=== PATIENT | male | born 2000 | race Hispanic/Latino ===

== ENCOUNTER 2018-06-19 20:55 | Emergency (ER) | payer OTHER ==
[~2018-06-19] VITALS: Ht 175.3 cm; Wt 86.4 kg
[2018-06-19 22:12] LABS: BASO # 0.1 10^3/uL (0.0-0.2); BASO % 0.7 % (0.0-1.0); EOS # 0.3 10^3/uL (0.0-0.50); EOS % 4.6 % (0.0-3.0); HEMATOCRIT 50.2 % (42.0-52.0); HEMOGLOBIN 17.5 g/dl (13.5-17.5); LYMPH % 44.4 % (24.0-44.0); MEAN CORPUSCULAR HEMOGLOBIN 30.9 pg (27.0-33.0); MEAN CORPUSCULAR HGB CONC 34.9 g/dl (32.0-36.5); MEAN CORPUSCULAR VOLUME 88.5 fl (80.0-96.0); MONO # 0.4 10^3/uL (0.0-0.8); MONO % 5.8 % (0.0-5.0); NEUTROPHILS % 44.2 % (36.0-66.0); PLATELET COUNT, AUTOMATED 245 10^3/uL (150-450); RED BLOOD COUNT 5.67 10^6/uL (4.30-6.10); WHITE BLOOD COUNT 6.7 10^3/uL (4.0-10.0)
[2018-06-19] MEDS ORDERED: ONDANSETRON 4MG/2ML VIAL (J2405) IV ONE (22:15)
[2018-06-19] MEDS ORDERED: NS 1,000 ML IV ONE (22:15)
[2018-06-19] MEDS ORDERED: KETOROLAC 30 MG/ML VIAL (J1885) IV ONE (22:15)
[2018-06-19 22:22] LABS: ALBUMIN 3.9 GM/DL (3.2-5.2); ALT/SGPT 21 U/L (12-78); BILIRUBIN,DIRECT < 0.1 MG/DL (0.0-0.2); BILIRUBIN,TOTAL 0.3 MG/DL (0.2-1.0); BLOOD UREA NITROGEN 12 MG/DL (7-18); CALCIUM LEVEL 8.6 MG/DL (8.5-10.1); CARBON DIOXIDE LEVEL 28 MEQ/L (21-32); CHLORIDE LEVEL 107 MEQ/L (98-107); CREATININE FOR GFR 0.88 MG/DL (0.70-1.30); GLUCOSE, FASTING 113 MG/DL (70-100); LIPASE 133 U/L (73-393); POTASSIUM SERUM 4.1 MEQ/L (3.5-5.1); SODIUM LEVEL 141 MEQ/L (136-145); TOTAL PROTEIN 7.1 GM/DL (6.4-8.2)
--- NOTE | 2018-06-19 23:21 | REPVR ---
EXAM: CT Abdomen and Pelvis Without Contrast EXAM DATE/TIME: 06/19/2018 10:42 PM CLINICAL HISTORY: 17 years old, male; Pain; Abdominal pain; Flank; Left; Additional info: Left flank/abd pain TECHNIQUE: Axial computed tomography images of the abdomen and pelvis without contrast. All CT scans at this facility use at least one of these dose optimization techniques: automated exposure control; mA and/or kV adjustment per patient size (includes targeted exams where dose is matched to clinical indication); or iterative reconstruction. Coronal and sagittal reformatted images were created and reviewed. COMPARISON: No relevant prior studies available. Study limitations: Evaluation for mass, inflammatory change, including bowel wall/fold thickening, viscera, and vasculature, is suboptimal without contrast. FINDINGS: LUNG BASES: No infiltrate or effusion. VASCULAR: Major vasculature is within normal limits for noncontrast evaluation. PERITONEAL : No free air. Trace amount of simple appearing free fluid within the pelvis (image 116, series 201) is of uncertain significance but abnormal in a male patient. GI: No hiatal hernia. The stomach is mildly distended with ingested material, fluid and gas. Evaluation of the stomach is limited without complete distention and contrast. No perigastric inflammatory stranding seen. Nonspecific fluid-filled loops of small bowel. No appearance of bowel obstruction. Mild gastroenteritis would be difficult to exclude by imaging but could be correlated clinically with any symptoms. Scattered fecal material and gas within portions of the colon and rectum. No pericolonic inflammatory stranding. No evidence of acute diverticulitis. The appendix does not appear inflamed. HEPATOBILIARY, PANCREAS, SPLEEN: Sagittal hepatic length is 18.8 cm. Hepatic attenuation is consistent with fatty infiltration. No calcified gallstones. Evaluation of pancreatic parenchyma is limited without contrast. No obvious peripancreatic inflammatory stranding. Spleen not enlarged. ADRENALS, KIDNEYS, BLADDER, RETROPERITONEAL: Adrenals within normal limits. No hydronephrosis. No perinephric stranding or fluid. There may be a punctate nonobstructing left lower pole renal calculus. Course of the distal ureters is not clearly identified but no suspicious calcifications are seen. There is a calcification within the left pelvis and felt likely to represent a phlebolith. Mild prominence of the prostate. Prostate calcification noted. No bladder wall thickening. No perivesical stranding. No calculi within the urinary bladder. MUSCULOSKELETAL: No acute findings. IMPRESSION: No hydronephrosis. There may be a punctate nonobstructive left lower pole renal calculus. Genitourinary findings as discussed above. Trace amount of free fluid within the pelvis. This is of uncertain cause but is abnormal in a male patient. Nonspecific gastrointestinal findings as discussed above. Other findings and study limitations discussed above. Electronically signed by: Abdi Hicks On 06/19/2018 23:20:43 PM
[2018-06-20 01:26] VITALS: BP 138/66
[2018-06-20 01:32] LABS: CHLAMYDIA DNA AMPLIFICATION NEGATIVE (NEGATIVE); GC DNA AMPLIFICATION NEGATIVE (NEGATIVE)
== END 2018-06-20 01:36 | disposition home or self-care (01) ==
LOC: M ED 20:55
DX: A08.4 Viral intestinal infection, unspecified (principal); R93.5 Abnormal findings on diagnostic imaging of other abdominal regions, including retroperitoneum; N40.0 Benign prostatic hyperplasia without lower urinary tract symptoms; F17.210 Nicotine dependence, cigarettes, uncomplicated
CPT/HCPCS: 36415; 74176; 80048; 80076; 81001; 83690; 85025; 87491; 87591; 96361; 96374; 96375; 99284; J1885; J2405

== ENCOUNTER 2019-02-06 18:26 | Emergency (ER) | payer OTHER ==
[~2019-02-06] VITALS: Ht 175.3 cm; Wt 92.5 kg
[2019-02-06 21:19] VITALS: BP 150/88
--- NOTE | 2019-02-07 07:41 | REP ---
REASON: Trauma. COMPARISON: No priors. FINDINGS: No acute fracture or destructive osseous lesion. The mortise is intact. Electronically Signed by Jose Mukherjee DO 02/07/2019 03:18 P
--- NOTE | 2019-02-07 07:41 | REP ---
REASON: Trauma. FINDINGS: The joint spaces are symmetric and relatively well maintained. There is no evidence of acute fracture or destructive osseous lesion. IMPRESSION: Negative. Electronically Signed by Jose Mukherjee DO 02/07/2019 03:19 P
--- NOTE | 2019-02-07 07:42 | REP ---
REASON: Trauma. FINDINGS: The compartments are symmetric and relatively well maintained. There is no acute fracture or destructive osseous lesion. Electronically Signed by Jose Mukherjee DO 02/07/2019 03:19 P
== END 2019-02-06 21:22 | disposition home or self-care (01) ==
LOC: M ED 18:26
DX: S93.402A Sprain of unspecified ligament of left ankle, initial encounter (principal); X50.1XXA Overexertion from prolonged static or awkward postures, initial encounter; Y92.89 Other specified places as the place of occurrence of the external cause; Y93.9 Activity, unspecified; Y99.1 Military activity

== ENCOUNTER 2019-03-01 13:04 | Emergency (ER) | payer OTHER ==
[~2019-03-01] VITALS: Ht 175.3 cm; Wt 94.6 kg
[2019-03-01 13:58] LABS: BASO % 0.5 % (0.0-1.0); EOS # 0.1 10^3/uL (0.0-0.5); EOS % 2.1 % (0.0-3.0); HEMATOCRIT 45.2 % (42.0-52.0); LYMPH # 2.7 10^3/uL (1.5-5.0); MEAN CORPUSCULAR HGB CONC 35.4 g/dl (32.0-36.5); MEAN CORPUSCULAR VOLUME 90.4 fl (80.0-96.0); MONO # 0.4 10^3/uL (0.0-0.8); MONO % 6.7 % (0.0-5.0); NEUTROPHILS # 2.5 10^3/uL (1.5-8.5); NEUTROPHILS % 43.5 % (36.0-66.0); PLATELET COUNT, AUTOMATED 215 10^3/uL (150-450); WHITE BLOOD COUNT 5.6 10^3/uL (4.0-10.0)
[2019-03-01 14:19] LABS: MONO SCRN NEGATIVE (NEGATIVE)
[2019-03-01 16:24] VITALS: BP 139/80
--- NOTE | 2019-03-01 18:42 | REP ---
HISTORY: Chronic cough. COMPARISON: None. FINDINGS: The superior mediastinal structures are midline. The cardiac silhouette is unremarkable in size, shape and position. The diaphragmatic surfaces of the lungs are regular and the costophrenic angles are clear. The pulmonary srivastava are clear. The imaged osseous structures are intact. IMPRESSION: There is no acute cardiopulmonary disease. Electronically Signed by Jose Mukherjee DO 03/04/2019 04:12 P
== END 2019-03-01 16:25 | disposition home or self-care (01) ==
LOC: M ED 13:04
DX: R53.83 Other fatigue (principal); J02.9 Acute pharyngitis, unspecified; R51 Headache; Z87.891 Personal history of nicotine dependence